=== PATIENT | female | born 1950 | race Two or more races ===

== ENCOUNTER 2019-07-19 10:09 | Outpatient (CLI) | payer OTHER | END 2019-07-19 12:30 | disposition home or self-care (01) | LOC: NUCLEAR 10:09 | DX: M81.0 Age-related osteoporosis without current pathological fracture (principal) ==

== ENCOUNTER 2019-07-19 11:01 | Outpatient (CLI) | payer OTHER | END 2019-07-19 11:24 | disposition home or self-care (01) | LOC: MAMO-SONO 11:01 | DX: Z12.31 Encounter for screening mammogram for malignant neoplasm of breast (principal); N64.4 Mastodynia ==

== ENCOUNTER 2021-05-28 11:12 | Outpatient (CLI) | payer OTHER | END 2021-05-28 11:30 | disposition home or self-care (01) | LOC: RAD 11:12 | PROVIDERS: ATTEND General Practice | DX: M51.06 Intervertebral disc disorders with myelopathy, lumbar region (principal); N64.4 Mastodynia; N94.89 Other specified conditions associated with female genital organs and menstrual cycle | CPT/HCPCS: 72141 ==

== ENCOUNTER 2021-08-02 11:25 | Outpatient (CLI) | payer OTHER | END 2021-08-02 11:27 | disposition home or self-care (01) | LOC: NUCLEAR 11:25 | PROVIDERS: ATTEND General Practice | DX: M81.8 Other osteoporosis without current pathological fracture (principal) ==

== ENCOUNTER 2021-11-19 08:54 | Outpatient (CLI) | payer OTHER | END 2021-11-19 08:57 | disposition home or self-care (01) | LOC: RAD 08:54 → MAMO-SONO 08:54 | DX: G57.02 Lesion of sciatic nerve, left lower limb (principal) ==

== ENCOUNTER 2022-11-26 09:11 | Outpatient (CLI) | payer OTHER | END 2022-11-26 09:26 | disposition home or self-care (01) | LOC: MAMO-SONO 09:11 | DX: Z12.31 Encounter for screening mammogram for malignant neoplasm of breast (principal); N60.11 Diffuse cystic mastopathy of right breast; N60.12 Diffuse cystic mastopathy of left breast; N93.8 Other specified abnormal uterine and vaginal bleeding ==

== ENCOUNTER 2023-08-19 12:17 | Outpatient (CLI) | payer OTHER | END 2023-08-19 12:30 | disposition home or self-care (01) | LOC: SONOGRAMA 12:17 | DX: M25.551 Pain in right hip (principal); N93.8 Other specified abnormal uterine and vaginal bleeding ==

== ENCOUNTER 2024-06-24 10:13 | Outpatient (CLI) | payer OTHER | END 2024-06-24 10:16 | disposition home or self-care (01) | LOC: MRI 10:13 | PROVIDERS: ATTEND Psychiatry & Neurology Neurology | DX: G30.1 Alzheimer's disease with late onset (principal) | CPT/HCPCS: 70551 ==

== ENCOUNTER 2024-09-07 10:53 | Outpatient (CLI) | payer OTHER | END 2024-09-07 11:04 | disposition home or self-care (01) | LOC: MAMO-SONO 10:53 | DX: N60.11 Diffuse cystic mastopathy of right breast (principal); N60.12 Diffuse cystic mastopathy of left breast; Z12.31 Encounter for screening mammogram for malignant neoplasm of breast ==